=== PATIENT | female | born 1985 | race African-American/Black ===

== ENCOUNTER 2024-08-07 14:27 | Emergency (ER) | payer SELFPAY ==
[2024-08-07 14:40] VITALS: BP 149/107
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
[2024-08-07] MEDS: LIDOCAINE 4% PATCH 1 PATCH TOPICAL (16:02)
[2024-08-07] MEDS: FLEXERIL 10 MG PO (16:06)
[2024-08-07] MEDS: TORADOL 15 MG IM (16:07)
[2024-08-07 16:10] VITALS: BP 147/87
== END 2024-08-07 18:16 | disposition home or self-care (01) ==
LOC: EMR 14:27
PROVIDERS: EMERGENCY PHYSICIAN Student in an Organized Health Care Education/Training Program
DX: M25.511 Pain in right shoulder (principal); V49.40XA Driver injured in collision with unspecified motor vehicles in traffic accident, initial encounter; I10 Essential (primary) hypertension
CPT/HCPCS: 96372; 99284; 73030